=== PATIENT | female | born 1965 | race Caucasian/White ===

== ENCOUNTER 2017-08-11 22:01 | Emergency (ER) | payer SELFPAY ==
[~2017-08-11] VITALS: Ht 162.6 cm; Wt 86.2 kg
[~2017-08-11 22:01] MED LIST: ALBIPROI; ALBU3IS INH; BECL40OI INH; BUDE6HFA INH; CETI10 PO; CETI5 PO; CIPR500 PO; CLON1; CLON1 PO; CYCL10 PO; Cleocin HCl300 MG PO; DILT120 PO; DILT30 PO; DULO30; DULO30 PO; DULO60 PO; ESCI10 PO; ESTR1; FLUSAL5005 IH; GABA300 PO; GUAI600T33 PO; HYDACE5 PO; HYDACE5325 PO; HYDMOR2 PO; IBUP800 PO; LEVFLO500 PO; LEVSOD75 PO; LITH300C PO; LORA10ER; LORA10ER PO; Levaquin500 MG PO; MEDICAL MARIJUANA; MONT10T; MONT10T PO; Norco 5-325 Ta1 EACH PO; OMEP20ER; OMEP20ER PO; OXYGEN; PANT40 PO; POTCHL10ER; PRAM.125 PO; PRAM.5 PO; PRED20 PO; PROBIOTIC1 EAC1 PO; PROCODE120 PO; SALMOI6.5; TERA2 PO; TERAZOSIN PO; TRAZ100; Ultram50 MG PO; ZOLP10; Zofran Odt4 MG SL; [UNRECOGNIZED DRUG - CODE]; [UNRECOGNIZED DRUG - OTHER]; [UNRECOGNIZED DRUG - OTHER] PO; [UNRECOGNIZED DRUG - OTHER] PO
[2017-08-11] MEDS ORDERED: TUDORZA PRESS400 MCG INH (23:20)
[2017-08-11] MEDS ORDERED: FLONASE ALLERG9.9 ML (23:21)
[2017-08-11] MEDS ORDERED: FLAX PO (23:21)
== END 2017-08-11 23:37 | disposition home or self-care (01) ==
LOC: ER 22:01
DX: J45.901 Unspecified asthma with (acute) exacerbation (principal); J44.9 Chronic obstructive pulmonary disease, unspecified; I10 Essential (primary) hypertension; F31.9 Bipolar disorder, unspecified; Z87.891 Personal history of nicotine dependence; Z88.8 Allergy status to other drugs, medicaments and biological substances; Z88.0 Allergy status to penicillin; Z91.048 Other nonmedicinal substance allergy status; Z79.51 Long term (current) use of inhaled steroids; Z79.899 Other long term (current) drug therapy
CPT/HCPCS: 71046; 94640; 99283

== ENCOUNTER 2017-08-24 19:13 | Emergency (ER) | payer SELFPAY ==
[~2017-08-24 19:13] MED LIST changes: +FLAX PO; +FLONASE ALLERG9.9 ML; +TUDORZA PRESS400 MCG INH
== END 2017-08-24 20:05 | disposition left against medical advice (07) ==
LOC: ER 19:13
DX: Z53.21 Procedure and treatment not carried out due to patient leaving prior to being seen by health care provider (principal)